=== PATIENT | male | born 1990 | race American Indian/Alaskan Native ===

== ENCOUNTER 2017-03-16 07:44 | Inpatient (IN) | payer OTHER ==
[2017-03-16 08:06] LABS: Basophils % (Auto) 0.2 % (0.0-1.8); Eosinophils % (Auto) 0.3 % (0.0-4.3); Mean Corpuscular HGB Conc 33 % (32-34); Mean Corpuscular Hemoglobin 31 pg (28-32); Mean Corpuscular Volume 94 fl (84-94); Platelet Count 164 K/mm3 (140-440); Red Blood Count 4.88 M/mm3 (3.65-5.03); Red Cell Distribution Width 12.6 % (13.2-15.2); White Blood Count 9.1 K/mm3 (4.5-11.0)
[2017-03-16 08:29] LABS: Alanine Aminotransferase 16 units/L (7-56); Albumin 3.9 g/dL (3.9-5); Albumin/Globulin Ratio 1.3 %; Alkaline Phosphatase 73 units/L (35-129); Anion Gap 16 mmol/L; Blood Urea Nitrogen 13 mg/dL (9-20); Calcium 9.1 mg/dL (8.4-10.2); Carbon Dioxide 27 mmol/L (22-30); Chloride 98.9 mmol/L (98-107); Glucose 88 mg/dL (75-100); Lipase 16 units/L (13-60); Potassium 4.3 mmol/L (3.6-5.0); Sodium 138 mmol/L (137-145); Total Protein 6.9 g/dL (6.3-8.2)
[2017-03-16 12:19] LABS: Bilirubin,Urine NEG (Negative); Blood,Urine MOD (Negative); Ketones,Urine NEG (Negative); Leukocyte Esterase,Urine NEG (Negative); Mucus,Urine 3+ /HPF; Nitrite,Urine NEG (Negative); Protein,Urine <15 mg/dL mg/dL (Negative)
[2017-03-16] MEDS ORDERED: NACL 0.9% 1000 ML 1,000 ML IV ONE (15:43)
[2017-03-16] MEDS ORDERED: MORPHINE IM ONE (15:43)
[2017-03-16] MEDS ORDERED: ZOFRAN IV ONE (15:43)
[2017-03-16] MEDS ORDERED: NACL ONE (15:46)
--- NOTE | 2017-03-16 16:35 | Cat Scan Report ---
CT ABDOMEN AND PELVIS WITH CONTRAST INDICATION: Right lower quadrant abdominal pain. COMPARISON: None similar at this institution. FINDINGS: Abdomen and pelvis CT performed following intravenous administration of 100 cc of Omnipaque 300. LUNG BASES: Nonspecific distal esophageal wall prominence/thickening, not excluded for gastroesophageal reflux and/or hiatal hernia, amongst others. ABDOMEN: Small free fluid noted in the right hemiabdomen also seen about the region of the cecum that is however not well seen due to lack of oral contrast. A definite appendix, whether normal or abnormal also not clearly identified. However, a small speck of air suspected in the right lower quadrant as on axial image 229, series 2 as also a questionable 1.4 cm abscess versus bowel debris as on axial image 223. Overall bowel gas pattern nonobstructive, though few midabdominal small bowel loops fluid-filled and measure up to 2.7 cm caliber, axial image 162, possibly a developing ileus. Stool noted in the transverse, descending colon and the rectosigmoid/possible constipation. Liver, spleen, gallbladder, pancreas, adrenals, IVC, aorta and kidneys within normal limits. PELVIS: Small free fluid noted in the deep pelvis, axial image 283. Urinary bladder, seminal vesicles and prostate otherwise within normal limits. No size significant adenopathy. Unremarkable bones. CONCLUSION: Exam limited due to lack of IV contrast, though CT appearance suspicious for right lower quadrant pathology/possible acute perforated appendicitis in an appropriate setting, as described. Please correlate clinically. Repeat CT following IV contrast may also be further helpful, if warranted. I phoned the above results to Dr. Cadet in the ER, 4:15 PM, 03/16/2017. Thank you for the opportunity to participate in this patient's care.
[2017-03-16] MEDS ORDERED: ZOSYN/NS 3.375GM/50ML 3.375 GM/50 ML BAG IV ONE (16:58)
--- NOTE | 2017-03-16 17:03 | Emergency Department Report ---
HPI - General Chief Complaint: Abdominal Pain Time Seen by Provider: 03/16/17 15:12 - HPI HPI: The patient's 26-year-old male presents for evaluation of abdominal pain. The patient reports right lower quadrant abdominal pain for the past 2 days, 8/10 in severity, sharp in quality, constant since onset, exacerbated with movement. The patient denies fever, chills, night sweats, diarrhea, blood in the stool, dark tarry stool, dysuria, hematuria, flank pain, genital discharge, inability to pass flatus. ED Past Medical Hx - Past Medical History Previous Medical History?: No - Surgical History Past Surgical History?: No - Social History Smoking Status: Never Smoker Substance Use Type: None - Medications Home Medications: Home Medications Medication Instructions Recorded Confirmed Last Taken Type No Known Home Medications [No 03/16/17 03/16/17 Unknown History Reported Home Medications] ED Review of Systems ROS: Stated complaint: ABD PAIN Other details as noted in HPI Constitutional: denies: fever ENT: denies: throat or neck pain Respiratory: denies: cough, shortness of breath Cardiovascular: denies: chest pain Endocrine: denies unexplained weight loss or gain Gastrointestinal: reports abdominal pain, nausea Genitourinary: denies: dysuria Musculoskeletal: denies: leg swelling Skin: denies: rash Neurological: denies: headache Hematological/Lymphatic: denies: easy bleeding or easy bruising Psych: denies sadness or hopelessness Physical Exam - Physical Exam Vital Signs: Vital Signs 03/16/17 07:50 Temperature 99.6 F Pulse Rate 94 H Respiratory 16 Rate Blood Pressure 120/88 O2 Sat by Pulse 100 Oximetry Physical Exam: General: well-nourished, well-developed, no acute distress Head: Normocephalic, atraumatic Eyes: normal sclera ENT: Mucous membranes are pink and moist Neck: trachea midline, neck supple, No neck stiffness, no cervical adenopathy Respiratory: Breath sounds equal bilaterally, no wheezing, rales, or rhonchi Cardio: S1 and S2 present, no murmurs, rubs, gallops, capillary refill is brisk Abdomen: Normoactive bowel sounds, soft abdomen, RLQ tenderness to palpation present at McBurney's point, no rigidity, no guarding or rebound tenderness Chest WALL/Back: No tenderness to palpation of the chest wall, no CVA tenderness with percussion Musc: No pitting edema Skin: No rash Neuro: no facial drooping, normal speech Psych: Normal affect ED Course Vital Signs 03/16/17 07:50 Temperature 99.6 F Pulse Rate 94 H Respiratory 16 Rate Blood Pressure 120/88 O2 Sat by Pulse 100 Oximetry ED Medical Decision Making - Lab Data Result diagrams: 03/16/17 07:59 03/16/17 07:59 - Medical Decision Making The patient was seen and examined by myself. The patient is placed on a monitor technician and continuous pulse ox. On initial evaluation, the patient was found to be in no distress. Evaluation orders were placed. The patient given IV morphine for his pain, 1 L normal saline fluid bolus, and Zofran. Lab results are unrevealing. CT scan of the abdomen and pelvis reveals right lower quadrant free fluid and potential free air, concerning for a ruptured appendicitis. The patient is given IV Zosyn for treatment of appendicitis. The on-call surgeon Dr. Rausch is contacted. He agreed to admit the patient and states that he would like to take the patient to the OR for surgical exploration. The ED admit order was placed. The patient was admitted in guarded condition. Critical care attestation.: If time is entered above; I have spent that time in minutes in the direct care of this critically ill patient, excluding procedure time. ED Disposition Clinical Impression: Acute appendicitis with rupture Disposition: OP ADMIT IP TO THIS HOSP Is pt being admited?: Yes Does the pt Need Aspirin: Yes Condition: Serious Referrals: PRIMARY CARE, [Primary Care Provider] - 3-5 Days Time of Disposition: 17:03
--- NOTE | 2017-03-16 17:18 | Admit Criteria Form ---
Admission Criteria Documentation: ABDOMINAL PAIN Clinical Indications for Admission to Inpatient Care (Place 'X' for any and all applicable criteria): Admission is indicated for ANY ONE of the following(1)(2)(3)(4)(5): [X]I. Inpatient admission required rather than observation care (Also use Abdominal Pain: Observation Care, as appropriate) because of ANY ONE of the following: [ ]a) Severe pain requiring acute inpatient management [ ]b) Identification of etiology/finding that requires inpatient care (eg, aortic dissection, free air) [ ]c) Absent bowel sounds with complete ileus(6) [ ]d) Suspected toxic megacolon [ ]e) Severe electrolyte abnormalities requiring inpatient care [ ]f) High fever or infection requiring inpatient admission as indicated by ANY ONE of following(7)(8): [ ] i) Appropriate outpatient or observational care antimicrobial treatment unavailable, not effective, or not feasible [ ] ii) Documented bacteremia [ ] iii) Temperature > 104.9 degrees F (oral) [ ] iv) T >103.1 F (oral) or < 96.8 F(rectal) that does not respond to all emergency treatment measures [ ]g) Signs of intestinal obstruction [B] [ ]h) Hemodynamic instability [ ]i) IV fluid to replace significant ongoing losses (greater than 3 L/m2 per day) (12)(13) [ ]j) Percutaneous or open drainage (eg, abscess, biliary tract ) procedures [ ]k) Parenteral nutrition regimen that must be implemented on inpatient basis [ ]l) Other condition,treatment or monitoring requiring inpatient admission. [ ]II. Peritoneal signs present [X]III. Surgery needed that cannot be performed on an ambulatory basis. [ ]IV. Evaluation requires patient to not eat or drink for extended period ( eg, more than 24 hours). [ ]V. Contraindications and/or Inappropriate clinical situations for Observational Care in patients with abdominal pain, when ANY ONE of the following is required: [ ]a) Thorough evaluation is required to prevent catastrophic events due to delays in diagnosing (e.g.Mesenteric ischemia) 1,3 [ ]b) Patient with severe pathology or with chronic symptoms unlikely to improve in the ED stay (3) [ ]. General contraindications and/or Inappropriate clinical situations for Observational Care in patients with abdominal pain, when ANY ONE of the following is required: [ ]a) Prediction of prolongation of LOS based on ANY ONE of the following may be considered as a contraindication for observational care 2, 3, 4, 5, 6, 7, 8, 9, 10, 11 [ ]i) Age > 65 yrs. [ ]ii) Patient arriving by ambulance [ ]iii) Patient with high acuity [ ]iv) Patient requiring vital sign monitoring [ ]v) Patient on IV medication [ ]b) Systolic blood pressures 180mmHg 3,12 [ ]c) Patient with altered mental status including delirium and other alteration of consciousness, (3) [ ]d) Patient whose discharge disposition will be to a care home home or rehabilitation home should not be managed in Emergency Department Observation Unit. CMS rule requires 3 days hospital stay before such placement.3,13 [ ]e) Patient with failure to thrive due to broad array of etiologies 3,16,17 [ ]f) Inability to ambulate 3,14 Extended stay beyond goal length of stay may be needed for(2)(3): [ ]a) Persistent abdominal pain with suspected intra-abdominal process [ ]b) Diagnosed condition requiring continued stay (e.g., pancreatitis, complicated diverticulitis) [ ]c) Surgery (e.g., colectomy) The original [employer] content created by [employer] has been revised. The portions of the content which have been revised are identified through the use of italic text or in bold, and [facility] has neither reviewed nor approved the modified material.All other unmodified content is copyright [employer]. Please see references footnoted in the original [employer] edition 2016 Admission Criteria Met: Yes
[2017-03-16] MEDS ORDERED: QUELICIN ONE (17:20)
[2017-03-16] MEDS ORDERED: XYLOCAINE MPF 2% ONE (17:20)
[2017-03-16] MEDS ORDERED: DIPRIVAN 10 MG/ML IV ONE (17:21)
[2017-03-16] MEDS ORDERED: SUBLIMAZE ONE (17:21)
[2017-03-16 17:41] LABS: INR 1.29 (0.87-1.13); Partial Thromboplastin Time 29.2 Sec. (24.2-36.6)
[2017-03-16] MEDS ORDERED: FLAGYL 500 MG/100 ML 500 MG/100 ML BAG IV SCH (18:00)
--- NOTE | 2017-03-16 18:36 | Anesthesia Consultation ---
Anesthesia Consult and Med Hx Date of service: 03/16/17 - Airway Anesthetic Teeth Evaluation: Good ROM Head & Neck: Adequate Mental/Hyoid Distance: Adequate Mallampati Class: Class II Intubation Access Assessment: Probably Good - Pulmonary Exam CTA: Yes - Cardiac Exam Cardiac Exam: RRR - Pre-Operative Health Status ASA Pre-Surgery Classification: ASA1 Proposed Anesthetic Plan: General - Pulmonary Hx Smoking: No Hx Sleep Apnea: No - Cardiovascular System Hx Hypertension: No - Central Nervous System Hx Neuromuscular Disorder: No - Endocrine Hx Non-Insulin Dependent Diabetes: No
--- NOTE | 2017-03-16 18:36 | Anesthesia Day of Surgery ---
Anesthesia Day of Surgery - Day of Surgery Patient Examined: Yes Patient H&P Reviewed: Yes Patient is NPO: Yes
[2017-03-16] MEDS ORDERED: LACTATED RINGERS 1,000 ML ONE ×2 (18:37→19:47)
[2017-03-16] MEDS ORDERED: MARCAINE-EPI 0.5%-1:200,000 INFILTRATI ONE ×2 (18:55)
[2017-03-16] MEDS ORDERED: NACL 0.9% IR ONE (18:55)
[2017-03-16] MEDS ORDERED: VERSED ONE (18:58)
[2017-03-16] MEDS ORDERED: ZOFRAN ONE (18:58)
[2017-03-16] MEDS ORDERED: DILAUDID ONE ×3 (19:02→20:42)
[2017-03-16] MEDS ORDERED: MARCAINE-EPI 0.25%-1:200,000 INFILTRATI ONE (19:05)
[2017-03-16] MEDS ORDERED: ZEMURON IV ONE (19:41)
--- NOTE | 2017-03-16 19:45 | History and Physical Report ---
ADMITTING DIAGNOSIS: Rule out acute appendicitis with perforation. The patient is a healthy 26-year-old gentleman who has been complaining of periumbilical pain, which has since radiated to the right lower quadrant since Monday. Pain has progressively been getting worse. PAST MEDICAL HISTORY: Negative. PAST SURGICAL HISTORY: Negative. ALLERGIES: No known allergies. MEDICATIONS: No medications. FAMILY HISTORY: Negative. SOCIAL HISTORY: Denies any smoking or drinking. REVIEW OF SYSTEMS: Noncontributory. PHYSICAL EXAMINATION: GENERAL: At this time reveals the patient to be awake, alert, cooperative, in mild discomfort, but no acute distress. VITAL SIGNS: Show him to be running a low grade temperature of 100, blood pressure is 121/81, pulse of 101, respirations of 22. HEENT: Pupils are equal and reactive to light and accommodation. Sclerae is nonicteric. NECK: Supple, no thyromegaly or adenopathy. CHEST: Lungs clear to auscultation and percussion. HEART: Normal sinus rhythm. No gross murmurs. ABDOMEN: Revealed to be flat, but somewhat rigid. There is localized right lower quadrant tenderness with guarding and rebound. Bowel sounds are absent. EXTREMITIES: Show full range of motion x 4. NEUROLOGIC: Grossly within normal limits. LABORATORY DATA: Lab work at present includes a CBC which shows a white count of 9.1, H and H is 15 and 46. Electrolytes are essentially within normal limits. CT scan of the abdomen has been performed, which is consistent with a probable perforated appendicitis. IMPRESSION: At this time is that of a 26-year-old healthy gentleman. Rule out acute appendicitis with possible abscess formation and/or perforation. PLAN: To proceed with emergency exploratory laparotomy and appendectomy. Risks, indications and complications have been reviewed with the patient and his family. The patient understands and has signed his consent. JOB# [id number] GEMMA/HAIR
[2017-03-16] MEDS ORDERED: ROBINUL ONE ×2 (19:52)
[2017-03-16] MEDS ORDERED: NEOSTIGMINE ONE (19:52)
--- NOTE | 2017-03-16 20:28 | Post Anesthesia Evaluation ---
- Post Anesthesia Evaluation Patient Participated: Yes Airway Patent: Yes Stable Respiratory Function: Yes Nausea/Vomiting: No Temp > 96.8F: Yes Pain Manageable: Yes Adequeate Hydration: Yes Anesthesia Complications: No Block Receding Appropriately: Not Applicable Patient on Ventilator: No
[2017-03-16] MEDS: DILAUDID IV PRN ×2 (20:37→20:47)
--- NOTE | 2017-03-16 21:34 | Operative Report ---
PREOPERATIVE DIAGNOSIS: Rule out acute appendicitis. POSTOPERATIVE DIAGNOSIS: Rule out acute appendicitis. PROCEDURE: Exploratory laparotomy and appendectomy. SURGEON: Bryan Rausch MD ANESTHESIA: General. ESTIMATED BLOOD LOSS: Minimal. DRAINS: None. COMPLICATIONS: None. DESCRIPTION OF PROCEDURE: The patient was taken to the operating room, prepped and draped in usual sterile fashion. [facility] Arvind type incision. External oblique muscle was then split and internal oblique fascia was transected. Internal oblique muscle was then split and abdomen entered. Upon entrance into the abdomen, the cecum was identified and slowly pulled up into the operative field. The appendix was then identified. The appendix was not noted to be ruptured, but did have an inflamed, indurated tip. Mesoappendix was secured with Harmonic scalpel. The base of the appendix was doubly ligated and transected. The appendix was swabbed for aerobic and anaerobic cultures. The surrounding area around the cecum was also noted to be inflamed with phlegmon type of inflammatory reaction, but no purulence or abscess seen. The entire area was irrigated copiously and dry. Checked for hemostasis and noted to be dry. Internal and external oblique fascia was then closed with interrupted #1 Vicryl suture. Subcutaneous tissues irrigated and skin closed loosely with dustin. Incision was also then packed with Telfa suraj soaked in Betadine. A 0.5% Marcaine was infiltrated over the fascia, as well as subcu and skin for postoperative pain relief. Fluffs and pressure dressings applied. The patient tolerated the procedure well and left the OR in stable condition. JOB# [id number] GEMMA/HAIR
[2017-03-16 23:24] LABS: Anion Gap 14 mmol/L; BUN/Creatinine Ratio 12.22; Blood Urea Nitrogen 11 mg/dL (9-20); Calcium 8.3 mg/dL (8.4-10.2); Carbon Dioxide 27 mmol/L (22-30); Chloride 98.8 mmol/L (98-107); Glucose 96 mg/dL (75-100); Sodium 136 mmol/L (137-145)
[2017-03-16 23:26] LABS: Basophils % (Auto) 0.2 % (0.0-1.8); Hematocrit 39.3 % (35.5-45.6); Hemoglobin 13.2 gm/dl (11.8-15.2); Mean Corpuscular HGB Conc 34 % (32-34); Mean Corpuscular Hemoglobin 32 pg (28-32); Mean Corpuscular Volume 94 fl (84-94); Platelet Count 144 K/mm3 (140-440); Red Blood Count 4.19 M/mm3 (3.65-5.03); Red Cell Distribution Width 12.1 % (13.2-15.2); White Blood Count 9.2 K/mm3 (4.5-11.0)
[2017-03-17] MEDS: MORPHINE IV PRN ×4 (03:31→19:09)
--- NOTE | 2017-03-17 07:22 | XRay Report ---
AP CHEST: HISTORY: Tachycardia AP view of the chest demonstrates a normal mediastinal and cardiac contour with clear lungs and normal bony and soft tissue structures. IMPRESSION: Unremarkable AP chest.
--- NOTE | 2017-03-17 08:18 | Progress Note ---
Subjective Date of service: 03/17/17 Interval history: No anesthetic related complaints. Objective - Constitutional Vitals: Vital Signs - 12hr 03/16/17 03/16/17 03/16/17 20:30 20:37 20:45 Temperature Pulse Rate 95 H 99 H Pulse Rate [ Brachial] Respiratory 26 H 16 12 Rate Blood Pressure 118/72 118/75 O2 Sat by Pulse 99 99 Oximetry 03/16/17 03/16/17 03/16/17 20:47 21:00 21:05 Temperature 100 F H Pulse Rate 94 H Pulse Rate [ Brachial] Respiratory 14 12 12 Rate Blood Pressure 112/63 O2 Sat by Pulse 95 Oximetry 03/16/17 23:24 Temperature 98.6 F Pulse Rate Pulse Rate [ 95 H Brachial] Respiratory 20 Rate Blood Pressure O2 Sat by Pulse 96 Oximetry - Labs CBC & Chem 7: 03/16/17 22:30 03/16/17 22:30 Labs: Abnormal lab results 03/16/17 03/16/17 Range/Units 22:30 22:30 RDW 12.1 L (13.2-15.2) % [place] % (Auto) 7.6 H (0.0-7.3) % Seg Neutrophils % 77.0 H (40.0-70.0) % Sodium 136 L (137-145) mmol/L Calcium 8.3 L (8.4-10.2) mg/dL
[2017-03-17] MEDS: D5W/0.45% NACL/KCL 30 MEQ 30 MEQ/1,000 ML BAG IV SCH ×2 (10:36)
[2017-03-17] MEDS ORDERED: MORPHINE IV PRN (12:15)
--- NOTE | 2017-03-17 19:59 | Progress Note ---
Assessment and Plan POD # 1 Pt c/o incisional pain. -flatus. Abd 1+ distended. neg BS lower h/h noted. dehydration? stable ileus monitor h/h ambulation continue Levaquin & Flagyl pain management local care Selected Entries 03/17/17 16:00 Temperature 98 F Pulse Rate [ 74 Brachial] Respiratory 16 Rate Blood Pressure 111/67 [Left Arm] Laboratory Tests 03/16/17 03/16/17 03/16/17 07:59 22:30 22:30 WBC 9.1 9.2 Hgb 15.0 13.2 Hct 46.0 H 39.3 D Sodium 136 L Potassium 4.0 Chloride 98.8 Carbon Dioxide 27 BUN 11 Creatinine 0.9 Objective Vital Signs - 12hr 03/17/17 03/17/17 08:00 16:00 Temperature 97.9 F 98 F Pulse Rate [ 71 74 Brachial] Respiratory 18 16 Rate Blood Pressure 100/68 111/67 [Left Arm] O2 Sat by Pulse 98 Oximetry - Labs 03/16/17 22:30 03/16/17 22:30 Diabetes panel 03/16/17 Range/Units 22:30 Sodium 136 L (137-145) mmol/L Potassium 4.0 (3.6-5.0) mmol/L Chloride 98.8 (98-107) mmol/L Carbon Dioxide 27 (22-30) mmol/L BUN 11 (9-20) mg/dL Creatinine 0.9 (0.8-1.5) mg/dL Glucose 96 (75-100) mg/dL Calcium 8.3 L (8.4-10.2) mg/dL Calcium panel 03/16/17 Range/Units 22:30 Calcium 8.3 L (8.4-10.2) mg/dL Pituitary panel 03/16/17 Range/Units 22:30 Sodium 136 L (137-145) mmol/L Potassium 4.0 (3.6-5.0) mmol/L Chloride 98.8 (98-107) mmol/L Carbon Dioxide 27 (22-30) mmol/L BUN 11 (9-20) mg/dL Creatinine 0.9 (0.8-1.5) mg/dL Glucose 96 (75-100) mg/dL Calcium 8.3 L (8.4-10.2) mg/dL Adrenal panel 06/08/17 Range/Units 22:30 Sodium 136 L (137-145) mmol/L Potassium 4.0 (3.6-5.0) mmol/L Chloride 98.8 (98-107) mmol/L Carbon Dioxide 27 (22-30) mmol/L BUN 11 (9-20) mg/dL Creatinine 0.9 (0.8-1.5) mg/dL Glucose 96 (75-100) mg/dL Calcium 8.3 L (8.4-10.2) mg/dL
[2017-03-17] MEDS: FLAGYL 500 MG/100 ML 500 MG/100 ML BAG IV SCH ×2 (22:35→23:13)
[2017-03-17] MEDS: LEVAQUIN 500MG/100ML 500 MG/100 ML BAG IV SCH ×2 (23:11)
[2017-03-18] MEDS: D5W/0.45% NACL/KCL 30 MEQ 30 MEQ/1,000 ML BAG IV SCH ×2 (05:16→17:15)
[2017-03-18] MEDS: FLAGYL 500 MG/100 ML 500 MG/100 ML BAG IV SCH ×2 (05:17→17:15)
[2017-03-18 06:03] LABS: Basophils % (Auto) 0.1 % (0.0-1.8); Eosinophils % (Auto) 0.4 % (0.0-4.3); Mean Corpuscular HGB Conc 33 % (32-34); Mean Corpuscular Hemoglobin 32 pg (28-32); Mean Corpuscular Volume 95 fl (84-94); Platelet Count 149 K/mm3 (140-440); Red Cell Distribution Width 12.2 % (13.2-15.2); White Blood Count 5.7 K/mm3 (4.5-11.0)
--- NOTE | 2017-03-18 22:35 | Progress Note ---
Assessment and Plan POD # 2 Pt feeling better. less pain. still no flatus Abd less distended but distention still present. very hypoactive BS. dressings dry h/h stable clinically improving. ambulation continue Levaquin & Flagyl Selected Entries 03/18/17 16:00 Temperature 97 F L Pulse Rate [ 78 Brachial] Respiratory 18 Rate Blood Pressure 124/83 [Left Arm] Laboratory Tests 03/16/17 03/18/17 22:30 05:18 WBC 9.2 5.7 Hgb 13.2 13.0 Hct 39.3 D 39.0 Objective Vital Signs - 12hr 03/18/17 16:00 Temperature 97 F L Pulse Rate [ 78 Brachial] Respiratory 18 Rate Blood Pressure 124/83 [Left Arm] - Labs 03/18/17 05:18 03/16/17 22:30
[2017-03-19] MEDS: FLAGYL 500 MG/100 ML 500 MG/100 ML BAG IV SCH ×4 (01:54→23:21)
[2017-03-19] MEDS: LEVAQUIN 500MG/100ML 500 MG/100 ML BAG IV SCH ×2 (01:56→23:20)
[2017-03-19] MEDS: MORPHINE IV PRN (02:01)
[2017-03-19] MEDS: D5W/0.45% NACL/KCL 30 MEQ 30 MEQ/1,000 ML BAG IV SCH (12:39)
--- NOTE | 2017-03-19 16:45 | Progress Note ---
Assessment and Plan POD # 3 Pt c/o nausea. "light headed" states + flatus Abd 2 distended (more so than yesterday) hypoactive BS prolonged ileus stable dulculax supp now abd series in am Selected Entries 03/19/17 09:39 Temperature 98.2 F Pulse Rate [ 80 Brachial] Respiratory 18 Rate Blood Pressure 113/75 [Left Arm] Objective Vital Signs - 12hr 03/19/17 09:39 Temperature 98.2 F Pulse Rate [ 80 Brachial] Respiratory 18 Rate Blood Pressure 113/75 [Left Arm] O2 Sat by Pulse 99 Oximetry - Labs 03/18/17 05:18 03/16/17 22:30
[2017-03-19] MEDS ORDERED: DULCOLAX PR ONE (16:46)
[2017-03-19] MEDS: ZOFRAN IV PRN ×3 (17:31→20:35)
[2017-03-19] MEDS: CHLORASEPTIC MM PRN (23:19)
[2017-03-19] MEDS: PEPCID IV SCH (23:19)
[2017-03-20] MEDS: CHLORASEPTIC MM PRN (04:08)
[2017-03-20] MEDS: FLAGYL 500 MG/100 ML 500 MG/100 ML BAG IV SCH ×3 (07:31→22:17)
--- NOTE | 2017-03-20 08:52 | XRay Report ---
ABDOMINAL SERIES INDICATION: Ileus. COMPARISON: 03/16/2017 CXR. FINDINGS: Abdominal series, 4 radiographs, demonstrate new esophagogastric tube noted horizontally in the proximal stomach with its tip directed laterally. Multiple air-filled small bowel loops dilated up to 4.4 cm. Colonic air also noted. Right lower quadrant postsurgical skin dustin and abdominal wall soft tissue air also seen. No definite pneumatosis or significant pneumoperitoneum. Accompanying chest radiograph again demonstrates normal cardiomediastinal silhouette and clear lungs. Mild lumbar levocurvature apex about L3-L4. Small right hemipelvic and scrotal phleboliths. CONCLUSION: 1. Postoperative ileus radiographically, as described. 2. New esophagogastric tube. Thank you for the opportunity to participate in this patient's care.
[2017-03-20] MEDS: PEPCID IV SCH ×2 (10:38→23:47)
--- NOTE | 2017-03-20 14:05 | Progress Note ---
Assessment and Plan POD # 4 Pt status quo. says "passed gas" Pt had episode of N&V yesterday requiring NG tube insertion Abd less distended today. non tender. Abd series - dilated small bowel loops with AFL but gas noted in ascending colon. consistent with ileus pattern intra-op C&S + e-coli S to Levaquin clinically improving ambulation continue IV antibiotics & NG suction f/u abd series in am Selected Entries 03/20/17 03/20/17 05:45 07:48 Temperature 98.4 F Pulse Rate [ 80 Brachial] Respiratory 20 Rate Blood Pressure 111/74 [Left Arm] Objective Vital Signs - 12hr 03/20/17 03/20/17 05:45 07:48 Temperature 97.4 F L 98.4 F Pulse Rate [ 74 80 Brachial] Respiratory 20 Rate Blood Pressure 111/74 [Left Arm] O2 Sat by Pulse 100 Oximetry - Labs 03/18/17 05:18 03/16/17 22:30
[2017-03-20] MEDS: D5W/0.45% NACL/KCL 30 MEQ 30 MEQ/1,000 ML BAG IV SCH (19:08)
[2017-03-20] MEDS: LEVAQUIN 500MG/100ML 500 MG/100 ML BAG IV SCH (22:17)
[2017-03-21 05:22] LABS: Basophils % (Auto) 0.4 % (0.0-1.8); Eosinophils % (Auto) 0.8 % (0.0-4.3); Hematocrit 40.3 % (35.5-45.6); Hemoglobin 13.6 gm/dl (11.8-15.2); Mean Corpuscular HGB Conc 34 % (32-34); Mean Corpuscular Hemoglobin 32 pg (28-32); Mean Corpuscular Volume 94 fl (84-94); Platelet Count 214 K/mm3 (140-440); Red Blood Count 4.29 M/mm3 (3.65-5.03); Red Cell Distribution Width 11.9 % (13.2-15.2); White Blood Count 4.8 K/mm3 (4.5-11.0)
[2017-03-21 05:26] LABS: Alanine Aminotransferase 16 units/L (7-56); Albumin 3.1 g/dL (3.9-5); Albumin/Globulin Ratio 1.1 %; Alkaline Phosphatase 49 units/L (35-129); Anion Gap 15 mmol/L; BUN/Creatinine Ratio 11.25; Blood Urea Nitrogen 9 mg/dL (9-20); Calcium 8.8 mg/dL (8.4-10.2); Carbon Dioxide 27 mmol/L (22-30); Chloride 100.2 mmol/L (98-107); Glucose 100 mg/dL (75-100); Potassium 4.6 mmol/L (3.6-5.0); Sodium 138 mmol/L (137-145)
[2017-03-21] MEDS: FLAGYL 500 MG/100 ML 500 MG/100 ML BAG IV SCH ×3 (05:33→23:39)
[2017-03-21] MEDS: D5W/0.45% NACL/KCL 30 MEQ 30 MEQ/1,000 ML BAG IV SCH ×2 (05:34→23:35)
--- NOTE | 2017-03-21 10:15 | XRay Report ---
ABDOMINAL SERIES INDICATION: Ileus. COMPARISON: Yesterday. FINDINGS: Abdominal series, three radiographs, demonstrate less prominent small bowel air-fluid levels with maximum caliber now approximately 3.6 cm. Colonic air again noted. No pneumatosis. Stable right lower quadrant postsurgical changes. Accompanying chest radiograph again demonstrates normal cardiomediastinal silhouette. Stable esophagogastric tube. No acute osseous process. CONCLUSION: Improving postoperative ileus, as described. Stable iatrogenic changes. Thank you for the opportunity to participate in this patient's care.
[2017-03-21] MEDS: PEPCID IV SCH ×2 (12:18→22:25)
--- NOTE | 2017-03-21 12:22 | Progress Note ---
Assessment and Plan POD # 5 Pt feeling much better +BM Abd soft, non tender. +BS Abd series - much improved gas pattern path - pre-appendiceal congestion (discussed with pathologist). surrounding periappendiceal inflammation? inflammatory bowel disease? surgically stable resolving ileus. d/c ng ice chips, po meds and popsicles GI eval will need f/u colonoscopy in 4-6 weeks. Selected Entries 03/21/17 08:00 Temperature 98 F Pulse Rate [ 74 Brachial] Respiratory 20 Rate Blood Pressure 126/80 [Left Arm] Laboratory Tests 03/21/17 03/21/17 04:20 04:20 WBC 4.8 Hgb 13.6 Hct 40.3 Sodium 138 Potassium 4.6 Chloride 100.2 BUN 9 Creatinine 0.8 Objective Vital Signs - 12hr 03/21/17 08:00 Temperature 98 F Pulse Rate [ 74 Brachial] Respiratory 20 Rate Blood Pressure 126/80 [Left Arm] O2 Sat by Pulse 97 Oximetry - Labs 03/21/17 04:20 03/21/17 04:20 Diabetes panel 03/21/17 Range/Units 04:20 Sodium 138 (137-145) mmol/L Potassium 4.6 (3.6-5.0) mmol/L Chloride 100.2 (98-107) mmol/L Carbon Dioxide 27 (22-30) mmol/L BUN 9 (9-20) mg/dL Creatinine 0.8 (0.8-1.5) mg/dL Glucose 100 (75-100) mg/dL Calcium 8.8 (8.4-10.2) mg/dL AST 21 (5-40) units/L ALT 16 (7-56) units/L Alkaline Phosphatase 49 (35-129) units/L Total Protein 6.0 L (6.3-8.2) g/dL Albumin 3.1 L (3.9-5) g/dL Calcium panel 03/21/17 Range/Units 04:20 Calcium 8.8 (8.4-10.2) mg/dL Albumin 3.1 L (3.9-5) g/dL Pituitary panel 03/21/17 Range/Units 04:20 Sodium 138 (137-145) mmol/L Potassium 4.6 (3.6-5.0) mmol/L Chloride 100.2 (98-107) mmol/L Carbon Dioxide 27 (22-30) mmol/L BUN 9 (9-20) mg/dL Creatinine 0.8 (0.8-1.5) mg/dL Glucose 100 (75-100) mg/dL Calcium 8.8 (8.4-10.2) mg/dL Adrenal panel 03/21/17 Range/Units 04:20 Sodium 138 (137-145) mmol/L Potassium 4.6 (3.6-5.0) mmol/L Chloride 100.2 (98-107) mmol/L Carbon Dioxide 27 (22-30) mmol/L BUN 9 (9-20) mg/dL Creatinine 0.8 (0.8-1.5) mg/dL Glucose 100 (75-100) mg/dL Calcium 8.8 (8.4-10.2) mg/dL Total Bilirubin 0.60 (0.1-1.2) mg/dL AST 21 (5-40) units/L ALT 16 (7-56) units/L Alkaline Phosphatase 49 (35-129) units/L Total Protein 6.0 L (6.3-8.2) g/dL Albumin 3.1 L (3.9-5) g/dL
[2017-03-21] MEDS ORDERED: NORCO 5/325 PO PRN (12:27)
[2017-03-21] MEDS: LEVAQUIN 500MG/100ML 500 MG/100 ML BAG IV SCH (22:23)
[2017-03-22] MEDS: FLAGYL 500 MG/100 ML 500 MG/100 ML BAG IV SCH ×3 (07:19→22:29)
[2017-03-22] MEDS: PEPCID IV SCH ×2 (10:26→22:34)
--- NOTE | 2017-03-22 10:35 | Gastroenterology Consultation ---
<BERTAMAURICIOMARY Allison - Last Filed: 03/22/17 10:26> History of Present Illness - Reason for Consult Consult date: 03/22/17 possible IBD Requesting physician: DORETHA RAUSCH - History of Present Illness Patient is a 26 y/o male admitted on 03/16/[address] revealed possible ruptured appendicitis. He is S/P appendectomy per Dr. Rausch, with post surgical ileus resolving. GI consulted due to pathology revealing pre- appendiceal congestion. Patient sitting up in bed this am with family at bedside , without distress. He denies abd pain rating it a 0/10. He has tolerated his clear liquid diet without N/V today. Last BM noted yesterday. Prior to hospitalization, pt denies GI symptoms such as abd pain/cramps, diarrhea, constipation, fever, wt loss, night sweats, or hematochezia. Reports normal BMs x 2 at home with brown formed stool. No NSAID use. No FHx of IBD. Past History Past Medical History: No medical history Past Surgical History: appendectomy Social history: single. denies: smoking Medications and Allergies Allergies Allergy/AdvReac Type Severity Reaction Status Date / Time No Known Allergies Allergy Unverified 03/16/17 07:56 Home Medications Medication Instructions Recorded Confirmed Last Taken Type No Known Home Medications [No 03/16/17 03/16/17 Unknown History Reported Home Medications] Active Meds: Active Medications Acetaminophen/Hydrocodone Bitart ([place] 5/325) 1 each PO Q4H PRN PRN Reason: Pain, Moderate (4-6) Famotidine (Pepcid) 20 mg IV BID LEILA Last Admin: 03/21/17 22:25 Dose: 20 mg Potassium Chloride/Dextrose/Sod Cl (D5w/0.45% Nacl/Kcl 30 Meq) 30 meq in 1,000 mls @ 125 mls/hr IV DIRECT LEILA Last Admin: 03/21/17 23:35 Dose: 125 mls/hr Levofloxacin/Dextrose (Levaquin 500mg/100ml) 500 mg in 100 mls @ 100 mls/hr IV Q24H LEILA PRN Reason: Protocol Last Admin: 03/21/17 22:23 Dose: 100 mls/hr Metronidazole (Flagyl 500 Mg/100 Ml) 500 mg in 100 mls @ 100 mls/hr IV Q8HR LEILA Last Admin: 03/22/17 07:19 Dose: 100 mls/hr Morphine Sulfate (Morphine) 2 mg IV Q3H PRN PRN Reason: Pain, Moderate (4-6) Last Admin: 03/19/17 02:01 Dose: 2 mg Morphine Sulfate (Morphine) 4 mg IV Q3H PRN PRN Reason: Pain , Severe (7-10) Last Admin: 03/17/17 13:48 Dose: 4 mg Ondansetron HCl (Zofran) 4 mg IV Q4H PRN PRN Reason: N/V unrelieved by Reglan Last Admin: 03/19/17 20:35 Dose: 4 mg Phenol (Chloraseptic) 1 spray MM PRN PRN PRN Reason: Sore Throat Last Admin: 03/20/17 04:08 Dose: 1 spray Review of Systems - Review of Systems Gastrointestinal: abdominal pain (RLQ) Exam - Constitutional Vital Signs: Temp Pulse Resp BP Pulse Ox 98.3 F 59 L 20 114/74 100 03/22/17 07:30 03/22/17 07:30 03/22/17 07:30 03/22/17 07:30 03/22/17 07:30 General appearance: no acute distress, well-nourished - EENT Eyes: PERRL, EOM intact ENT: hearing intact - Neck Neck: supple, normal ROM - Respiratory Respiratory: bilateral: CTA - Cardiovascular Rhythm: regular Heart Sounds: Present: S1 & S2 Extremities: No edema - Gastrointestinal General gastrointestinal: Present: soft, non-tender, non-distended, normal bowel sounds, other (surgical dressing intact RLQ) - Integumentary Integumentary: Present: warm, dry - Neurologic Neurological: alert and oriented x3 - Labs CBC & Chem 7: 03/21/17 04:20 03/21/17 04:20 Assessment and Plan 1. Possible IBD -S/P appendectomy -WBC-WNL -afebrile -pathology revealed pre-appendiceal congestion- possible IBD? -patient without symptoms and no FHx of IBD -Discussed pathology results with pt and need for a work-up as an outpatient to r/o IBD -Recommend a colonoscopy in 6 weeks, office information and card given to patient -patient ok to be d/c home per GI standpoint with outpatient f/u visit in 2 weeks <SOURAV MARIE - Last Filed: 03/22/17 11:10> Medications and Allergies Active Meds: Active Medications Acetaminophen/Hydrocodone Bitart ([place] 5/325) 1 each PO Q4H PRN PRN Reason: Pain, Moderate (4-6) Famotidine (Pepcid) 20 mg IV BID [facility] Last Admin: 03/21/17 22:25 Dose: 20 mg Potassium Chloride/Dextrose/Sod Cl (D5w/0.45% Nacl/Kcl 30 Meq) 30 meq in 1,000 mls @ 125 mls/hr IV DIRECT LEILA Last Admin: 03/21/17 23:35 Dose: 125 mls/hr Levofloxacin/Dextrose (Levaquin 500mg/100ml) 500 mg in 100 mls @ 100 mls/hr IV Q24H LEILA PRN Reason: Protocol Last Admin: 03/21/17 22:23 Dose: 100 mls/hr Metronidazole (Flagyl 500 Mg/100 Ml) 500 mg in 100 mls @ 100 mls/hr IV Q8HR [facility] Last Admin: 03/22/17 07:19 Dose: 100 mls/hr Morphine Sulfate (Morphine) 2 mg IV Q3H PRN PRN Reason: Pain, Moderate (4-6) Last Admin: 03/19/17 02:01 Dose: 2 mg Morphine Sulfate (Morphine) 4 mg IV Q3H PRN PRN Reason: Pain , Severe (7-10) Last Admin: 03/17/17 13:48 Dose: 4 mg Ondansetron HCl (Zofran) 4 mg IV Q4H PRN PRN Reason: N/V unrelieved by Regclemente Last Admin: 03/19/17 20:35 Dose: 4 mg Phenol (Chloraseptic) 1 spray MM PRN PRN PRN Reason: Sore Throat Last Admin: 03/20/17 04:08 Dose: 1 spray Exam - Constitutional Vital Signs: Temp Pulse Resp BP Pulse Ox 98.3 F 59 L 20 114/74 100 03/22/17 07:30 03/22/17 07:30 03/22/17 07:30 03/22/17 07:30 03/22/17 07:30 - Labs CBC & Chem 7: 03/21/17 04:20 03/21/17 04:20 Assessment and Plan - Patient Problems (1) IBD (inflammatory bowel disease) Current Visit: Yes Status: Acute Plan to address problem: Possible IBD suggested by pathology on appendix specimen. He has no clinical history to suggests Crohn's but will need outpatient colonoscopy. He appears stable from GI stand point to go home at your discretion. Will f/u PRN this admission. Thank you very kindly Dr. Rausch.
--- NOTE | 2017-03-22 14:42 | Progress Note ---
Assessment and Plan POD # 6 Pt feeling well without compl. norman d/c of ng without incident Abd soft. incision clean & dry surgically stable GI eval appreciated full liq diet probable d/c in am if diet norman Selected Entries 03/22/17 07:30 Temperature 98.3 F Pulse Rate [ 59 L Brachial] Respiratory 20 Rate O2 Sat by Pulse 100 Oximetry Blood Pressure 114/74 [Left Arm] Objective Vital Signs - 12hr 03/22/17 07:30 Temperature 98.3 F Pulse Rate [ 59 L Brachial] Respiratory 20 Rate Blood Pressure 114/74 [Left Arm] O2 Sat by Pulse 100 Oximetry - Labs 03/21/17 04:20 03/21/17 04:20
[2017-03-22] MEDS: LEVAQUIN 500MG/100ML 500 MG/100 ML BAG IV SCH (22:29)
[2017-03-23 08:47] VITALS: BP 101/66
[2017-03-23] MEDS: PEPCID IV SCH (09:07)
--- NOTE | 2017-03-23 12:34 | Progress Note ---
Assessment and Plan POD #7 Pt feeling well without compl. norman full liq diet. ambulating down halls Abd soft, non tender stable reg diet d/c today if diet norman rto I wk Selected Entries 03/23/17 07:15 Temperature 98.5 F Pulse Rate [ 60 Brachial] Respiratory 20 Rate Blood Pressure 101/66 [Left Arm] Objective Vital Signs - 12hr 03/23/17 07:15 Temperature 98.5 F Pulse Rate [ 60 Brachial] Respiratory 20 Rate Blood Pressure 101/66 [Left Arm] O2 Sat by Pulse 100 Oximetry - Labs 03/21/17 04:20 03/21/17 04:20
--- NOTE | 2017-03-23 12:37 | Discharge Summary ---
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 cover incision with gauze and tape after shower.) Additional Instructions: PO Levaquin & Flagyl x 3 days Follow up with: DORETHA CARTER MD [Staff Physician] - 7 Days
--- NOTE | 2017-03-23 13:58 | Event Note ---
Date: 03/23/17 - pt stable from GI standpoint for d/c - will sign off, call if needed
--- NOTE | 2017-03-23 15:52 | Discharge Summary ---
DISCHARGE DIAGNOSES: 1. Appendicitis. 2. Rule out inflammatory bowel disease. HOSPITAL COURSE: The patient is a 26-year-old gentleman who presented to the Emergency Room with a chief complaint of right lower quadrant abdominal pain accompanied by rebound and guarding. CT scan of the abdomen done at that time was consistent with acute appendicitis with possible abscess formation and/or perforation. The patient's past medical and surgical history were essentially negative. At that time, the patient was admitted and taken directly to surgery where indeed surrounding pericecal inflammation was noted. The appendiceal tip was noted to be indurated, but there was no evidence of gangrene or perforation of the appendix. The patient's postoperative course has been essentially stable. He was kept n.p.o. for the first few days postop until his ileus resolved. Subsequent to this, the patient was started on a liquid diet and has since been advanced to a regular diet. The patient has been on IV Levaquin and Flagyl for his postoperative period. Most recent blood work includes a CBC, which shows a white count of 4.8, H and H is 13 6 and 40.3. GI evaluation was also obtained and the patient will follow up with GI for a colonoscopy in the next 4-6 weeks again to rule out any inflammatory bowel component or other colonic pathology. Currently, the patient's postop day #7, afebrile and feeling well. His abdomen is soft and nontender. Incision is clean and dry. He is tolerating a regular diet this morning without incident. He is ambulating on the halls and has no complaints. The patient will be discharged today with instructions of no heavy lifting or straining and to call immediately if he has any evidence of nausea, vomiting, abdominal pain, or fever. If not, the patient will be followed up in the office approximately 1 week and also will follow up with GI as previously mentioned. JOB# [id number] GEMMA/HAIR
[2017-03-23] MEDS ORDERED: PEPCID PO SCH (22:00)
== END 2017-03-23 16:00 | disposition home or self-care (01) | DRG 339 ==
LOC: ED 07:44 → 2B-SURG 20:25
PROVIDERS: ADMIT Surgery; ATTEND Surgery
PROC: 0DTJ0ZZ Resection of Appendix, Open Approach (ICD-10-PCS; principal; 2017-03-16)
DX: K35.2 Acute appendicitis with generalized peritonitis (principal); K91.3 Postprocedural intestinal obstruction
CPT/HCPCS: 36415; 71010; 74022; 74177; 80048; 80053; 81001; 82140; 83690; 85025; 85610; 85730; 86850; 86900; 86901; 87075; 87076; 87116; 87186; 88302; 93005; 93010; 96372; 96374; 99285; J0330; J1170; J1956; J2250; J2270; J2405; J2543; J2704; J2710; J3010; J7030; J7120; Q9967